=== PATIENT | female | born 1965 | race Caucasian/White ===

== ENCOUNTER 2024-11-10 06:21 | Day surgery (SDC) | payer MEDICAID ==
[2024-11-07 14:02] LABS: BASOPHILS % (AUTO) 0.5 % (0-1); EOSINOPHILS % (AUTO) 0 % (0-6); LYMPHOCYTES % (AUTO) 24.9 % (21-51); MEAN CORPUSCULAR HEMOGLOBIN 26.2 PG (27.0-31.0); MEAN CORPUSCULAR HGB CONC 33.3 g/dL (33.0-36.5); MEAN CORPUSCULAR VOLUME 78.6 FL (78-98); MEAN PLATELET VOLUME 6.7 FL (7.4-10.4); MONOCYTES # (AUTO) 0.6 X10'3 (0-0.9); MONOCYTES % (AUTO) 6.8 % (2-12); NEUTROPHILS # (AUTO) 5.5 X10'3 (1.8-7.7); NEUTROPHILS % (AUTO) 67.8 % (42-75); PRE OP HEMATOCRIT 37.7 % (35.0-45.0); PRE OP HEMOGLOBIN 12.5 g/dL (12.0-16.0); PRE OP PLATELET COUNT 388 X10'3 (140-440); PRE OP WHITE BLOOD COUNT 8.2 10'3 (4.8-10.8); RED BLOOD COUNT 4.79 X10'6 (4.20-5.60); RED CELL DISTRIBUTION WIDTH 15.5 % (11.5-14.5)
[2024-11-07 14:18] LABS: ALBUMIN 3.5 G/DL (3.4-5.0); ALBUMIN/GLOBULIN RATIO 0.9 (1.1-1.5); ALKALINE PHOSPHATASE 176 IU/L (46-116); BLOOD UREA NITROGEN 22 MG/DL (7-18); BUN/CREATININE RATIO 30.1 (10.0-20.0); CALCIUM 9.3 MG/DL (8.5-10.1); CHLORIDE 101 MMOL/L (99-107); CREATININE 0.73 MG/DL (0.40-0.90); PRE OP ALT 33 U/L (30-65); PRE OP AST 22 U/L (10-37); PRE OP BILIRUB, TOTAL 0.4 MG/DL (0.0-1.0); PRE OP GLUCOSE 101 MG/DL (70-104); TOTAL CARBON DIOXIDE 26.3 MMOL/L (24-32); TOTAL PROTEIN 7.2 G/DL (6.4-8.2); eGFR 82 ML/MIN
[2024-11-07 14:23] LABS: PRE OP ANION GAP 8 (8-16); PRE OP SODIUM 135 MMOL/L (135-145)
[2024-11-10] VITALS (8 sets, daily range): BP systolic 96–138; BP diastolic 63–82; PULSE 61–68; RESP 10–16; TEMP 97.1; O2SAT 93–99
[~2024-11-10] VITALS: Ht 157.5 cm; Wt 77.5 kg
[~2024-11-10 06:21] MED LIST: ALBU8HFA PO; ASHW300C2; BIOT1CAP3 PO; CALC500T63 PO; CETI10TA14 PO; CHOL100046 PO; DIPH25TA25 PO; DIPH25TA27 PO; EPIN0.3A3 IM; FAMO40TA86 PO; FLUT16SP26 BOTHNARES; GABA-530 PO; MECO10005 PO; MELA5TAB12 PO; MULT-1249 PO
[2024-11-10] MEDS ORDERED: BUPIVAcaine/PF 2.5mg/ml (0.25%) 10ml vial ONE (07:05)
[2024-11-10] MEDS ORDERED: LIDOcaine 2% (20mg/ml) 5ml vial ONE (07:06)
[2024-11-10] MEDS: famotidine 20mg tablet PO ONE (07:17)
[2024-11-10] MEDS: ringers solution, lacted 1,000 ML IV SCH (07:18)
[2024-11-10] MEDS: ceFAZolin 2gm/dext,iso 50mL 50 ML IV ONE (07:18)
[2024-11-10] MEDS: ondansetron/PF 4mg/2ml inj IV ONE (07:41)
[2024-11-10] MEDS ORDERED: HYDROmorphone/PF 0.2 MG/ML SYRINGE IV PRN (08:00)
[2024-11-10] MEDS ORDERED: ringers solution, lacted 1,000 ML IV SCH (08:00)
[2024-11-10] MEDS ORDERED: morphine 2 MG/ML inj. syringe IV PRN (08:00)
[2024-11-10] MEDS ORDERED: morphine 4 MG/ML inj SYRINge IV PRN (08:00)
[2024-11-10] MEDS ORDERED: fentaNYL/PF 50MCG/1 ML 2ML syringe ONE (08:21)
[2024-11-10] MEDS ORDERED: midazolam 1 mg/ML 2ml injection ONE (08:21)
[2024-11-10] MEDS ORDERED: propofol inj 20 ML IV ONE (08:23)
[2024-11-10] MEDS: HYDROmorphone/PF 0.2 MG/ML SYRINGE IV PRN (08:51)
[2024-11-10] MEDS: ondansetron/PF 4mg/2ml inj IV PRN (09:08)
--- NOTE | 2024-11-10 16:15 | OPERATIVE REPORT ---
Operative Report Providers to ~ Date of Procedure: Nov 10, 2024 Pre-Operative Diagnosis: Left carpal tunnel syndrome left ring trigger finger Post-Operative Diagnosis Left wrist carpal tunnel syndrome, left ring finger trigger finger Procedure Performed Left wrist endoscopic carpal tunnel release, incision tendon sheath A1 jud left ring finger Surgeon: Adam Robles MD [place] None Anesthesiologist: Lakhwinder Kinsey Type of Anesthesia: Other (Local anesthesia with sedation) Findings: Prosthetics\Implants used: None Estimated Blood Loss: None Specimen Removed: None Description of Procedure: The patient is a 59-year-old carpal tunnel syndrome and trigger finger both of which are chronic and refractory to nonsurgical treatment. Surgery is indicated to relieve symptoms. Risks benefits were discussed with the patient. The some of the risks include but are not limited to infection, bleeding, nerve or vessel damage and incomplete relief of symptoms as well as scar pain. She agreed to proceed. She was brought to the operating room where the arm was prepped and draped in usual manner. Time-out procedure was identified and the tourniquet was elevated in the forearm level. Local anesthetic was infiltrated proximal to the carpal tunnel and to the ring finger incision site. Starting with the ring finger stra ight incision was made over the flexor tendon at the distal palm level. Dissection was taken down to the tendon sheath and the A1 jud was clearly visualized and incised longitudinally. There was no lesions on the tendons and they were moving freely at this point. The next incision was made transversely over the wrist crease ulnar to palmaris longus. A distally based U shaped flap was raised in the forearm fascia and the scope was placed in the carpal canal in line with the ring finger. The cutting blade was deployed up against the underside of the ligament and the scope was drawn proximally, dividing the ligament under direct vision. The scope was then removed and the flap was transected. The fascia proximal to the incision was divided using the blunt scissor tips. The incision was then irrigated and closed with a nylon suture as well as the ring finger incision. A sterile dressing was applied and the tourniquet was released. The hand perfused well and she was taken to recovery room in stable condition ADAM ROBLES Jr., MD Nov 10, 2024 16:15
== END 2024-11-10 09:37 | disposition home or self-care (01) ==
LOC: PAS 06:21
PROVIDERS: ATTEND Orthopaedic Surgery Hand Surgery
DX: G56.02 Carpal tunnel syndrome, left upper limb (principal); M65.342 Trigger finger, left ring finger; Z79.899 Other long term (current) drug therapy; G47.30 Sleep apnea, unspecified; Z98.51 Tubal ligation status; Z90.710 Acquired absence of both cervix and uterus; Z98.890 Other specified postprocedural states; Z88.8 Allergy status to other drugs, medicaments and biological substances; Z91.040 Latex allergy status
CPT/HCPCS: 26055; 29848; 36415; 80053; 82948; 85025; J1171; J2003; J2250; J2405; J2704; J3010; J3490; J7030; J7120; Z7506; Z7512; A4215; A6449; A7000